=== PATIENT | male | born 1990 | race Caucasian/White ===

== ENCOUNTER 2023-10-17 11:58 | Emergency (ER) | payer OTHER ==
[~2023-10-17] VITALS: Ht 167.6 cm; Wt 97.5 kg
[~2023-10-17 11:58] MED LIST: SEPTRA DS TABLE1 TAB PO; ULTRACET PO
[2023-10-17 15:06] LABS: HEMATOCRIT 45.4 % (39.0-48.0); HEMOGLOBIN 15.1 g/dL (13-16.00); MEAN CELL VOLUME 87.2 fL (80.0-100.00); MEAN CORPUSCULAR HEMOGLOBIN 29.1 pg (27.00-32.0); MEAN CORPUSCULAR HGB CONC 33.4 g/dl (32.0-36.0); PLATELET COUNT 244 K/uL (150-450); RED CELL DISTRIBUTION WIDTH 13.6 % (11.5-14.5)
[2023-10-17 15:28] LABS: CALCIUM 9.2 mg/dL (8.5-10.1); CREATININE SERUM 1.15 mg/dL (0.70-1.30); GFR 72.37; POTASSIUM 3.73 mEq/L (3.5-5.1)
[2023-10-17 15:29] LABS: PH,URINE 5.5 (5.0-8.0); URINE APPEARANCE Clear; URINE BILIRRUBIN Negative (NEGATIVE); URINE BLOOD Negative; URINE COLOR Yellow; URINE GLUCOSE Negative (NEGATIVE); URINE LEUKOCYTE Negative; URINE NITRATE Negative; URINE PROTEIN Negative (NEGATIVE); URINE UROBILINOGEN 0.2 E.U./dl
[2023-10-17 15:33] LABS: URINE WBC 2.5 uL (0.0-23.2)
[2023-10-17 15:43] LABS: URINE RBC 1.7 uL (0.0-20.8)
== END 2023-10-17 16:24 | disposition home or self-care (01) ==
LOC: ER 11:58
PROVIDERS: General Practice
DX: N50.812 Left testicular pain (principal)